=== PATIENT | male | born 1985 | race Caucasian/White ===

== ENCOUNTER 2016-07-18 09:08 | Emergency (ER) | payer OTHER, SELFPAY ==
[2016-07-18] MEDS ORDERED: Tetracaine HCl 0.5% Ophth Soln 2 ML Bottle ONE (09:22)
[2016-07-18] MEDS ORDERED: Fluorescein Opthalmic Strip ONE (09:23)
[2016-07-18] MEDS ORDERED: Adacel (T-DAP) 0.5 ML VIAL ONE (10:03)
== END 2016-07-18 10:13 | disposition home or self-care (01) ==
LOC: NAV ERS 09:08
DX: T15.01XA Foreign body in cornea, right eye, initial encounter (principal); F17.210 Nicotine dependence, cigarettes, uncomplicated; X58.XXXA Exposure to other specified factors, initial encounter
CPT/HCPCS: 65210; 65222; 90471; 90715